=== PATIENT | female | born 1975 | race Caucasian/White ===

== ENCOUNTER → 2022-11-10 15:19 | Outpatient (BNVA) | payer OTHER, SELFPAY | PROVIDERS: PCP Family Medicine; Visit Provider Nurse Practitioner Family | DX: Z13.89 Encounter for screening for other disorder (principal) ==

== ENCOUNTER 2023-05-10 14:36 | Outpatient (AMB) | payer OTHER, SELFPAY ==
--- NOTE | 2023-05-10 14:39 | MHC.OFFVIS ---
Intake Vital Signs 05/10/23 14:40 Height 5 ft 4 in Weight 138 lb 8 oz BMI 23.8 Pulse 55 Pulse Source Pulse Oximeter Pulse Oximetry (%) 99 Oxygen Delivery Method Room Air Intake Visit Reasons: 6 mo f/u for Migraines-LVM Intake Note: Patient presents for 6 month follow up. Patient states pretty good I had last month mild aura but it went away quick. Allergies No Known Allergies Allergy (Verified 05/10/23 14:42) Medication List - Last Reconciled 05/10/23 by GENEVA Rubi fluoxetine 40 mg PO DAILY levothyroxine 100 mcg PO DAILY magnesium oxide 400 mg PO DAILY propranolol ER 60 mg PO BEDTIME rizatriptan 1 tab at onset of headache and may repeta in 2hrs as needed orally; HPI HPI Comments History of Present Illness Details 47-yr-old female presents for f/u visit. Pt denies any significant interval medical changes. Pt reports her migraines are well-controlled. In Sep, she had some breakthrough aura s/s, which just self-abated. Once she needed to take Rizatriptan, which was helpful PFSH Medical History Dysmenorrhea Anemia Surgical History H/O oral surgery Family History Father Diabetes Paternal Grandfather Diabetes Paternal Grandmother Diabetes Pancreatic cancer Breast cancer Paternal Uncle Diabetes Paternal Aunt Diabetes Breast cancer Maternal Grandmother Lung cancer Social History (Updated 11/10/22 @ 15:28 by Martine Mccoy CMA) Household Members: Spouse and Children Housing: House Alcohol intake: current Alcohol intake frequency: a few times a month Patient Tobacco Use Status: Never used Tobacco Review of Systems Const All systems reviewed & are unremarkable except as noted in HPI and below Physical Exam Vital Signs: Last Vital Signs Pulse 55 05/10/23 14:40 Pulse Ox 99 05/10/23 14:40 Oxygen Delivery Method Room Air 05/10/23 14:40 BMI result Body Mass Index 23.8 Const General: cooperative and no acute distress Orientation/consciousness: patient oriented x3 HEENT Head: Yes normocephalic Resp Effort & Inspection: normal respiratory effort and able to speak in complete sentences Neuro General: patient oriented x3, gait normal and CN's II-XI intact bilaterally Cognition (Neuro): normal cognition Motor exam (neuro): 5/5 motor strength present throughout Psych Appearance: grossly normal Mental Status: mental status grossly normal Speech and movement: Normal speech and movement present Affect: normal affect Attitude: cooperative Thought process: Normal thought process present Thought content: Normal thought content present Insight: Good insight present (Psych) Judgement: Good judgement present (Psych) Assessment & Plan Assessment & Plan (1) Migraine: Code(s): G43.909 - Migraine, unspecified, not intractable, without status migrainosus Plan Continue prorpanalol LA 60mg qd Resume magnesium 400mg qhs.. Rizatriptan 10mg as needed, MR dose in 2hrs, may adjunct w/ Tylenol or NSAID. f/u in 6 months or sooner prn. Medications: Refilled magnesium oxide 400 mg PO DAILY 30 caps 6RF rizatriptan 1 tab at onset of headache and may repeta in 2hrs as needed orally; 12 tabs 6RF Coding Level of Care Code Est Pt Level 3 (31617) Diagnoses Migraine G43.909
[2023-05-10 14:40] VITALS: PULSE 55; O2SAT 99; BMI 23.8
== END 2023-05-10 14:59 | disposition home or self-care (01) ==
PROVIDERS: Visit Provider Nurse Practitioner Family
DX: G43.909 Migraine, unspecified, not intractable, without status migrainosus (principal)
CPT/HCPCS: 99213

== ENCOUNTER → 2023-05-10 14:36 | Outpatient (BNVA) | payer OTHER, SELFPAY | PROVIDERS: Visit Provider Nurse Practitioner Family ==

== ENCOUNTER 2024-05-02 15:36 | Outpatient (AMB) | payer OTHER, SELFPAY ==
--- NOTE | 2024-05-02 15:41 | A.OFFVIS_ITS ---
Vital Signs 05/02/24 15:43 Height 5 ft 3 in Weight 136 lb BMI 24.1 BP 110/74 Blood Pressure Location Rt brachial Position Sitting Pulse 65 Pulse Source Pulse Oximeter Pulse Oximetry (%) 98 Oxygen Delivery Method Room Air Intake Visit Reasons: Follow Up Intake Note: Patient presents for follow up.patient migraines have had an uptick in the last few weeks Allergies No Known Allergies Allergy (Verified 05/02/24 15:47) Medication List - Last Reconciled 05/02/24 by GENEVA Rubi fluoxetine 40 mg PO DAILY levothyroxine 100 mcg PO DAILY magnesium oxide 400 mg PO DAILY propranolol 20 mg PO BID 30 days rizatriptan 1 tab at onset of headache and may repeta in 2hrs as needed orally; HPI Comments Details: 48-yr-old female presents for f/u visit. Pt denies any significant interval medical changes. Pt reports her migraines seem like they have increased, possibly in severity. Has ~ 4 migraine w/o aura attacks per month, 1 migraine w/ aura attack every 1-3 months. Rare regular headcahe, though had a couple last week- possibly had a mild cold. Rarely may look and see 2 bright white orbs- quick flash and they are gone. Different from her usual migraine aura. She is not sure if this was r/t her father being in the hospital most of the summer. But also the weather changes. She is taking the Rizatriptan, which is usually helpful but sometimes it takes longer to work. She stopped the propranolol approx 9-10 months ago d/t incidental bradycardia and variable HR, whcih was identified when she tried to donate platelets. Baseline migraine w/o aura characteristics: Neck and shoulders tightness which and works its way up to a throbbing occipital region pain a/w photophobia, phonophobia, nausea. Baseline migraine w/ aura characteristics: Starts as cannot see, then cannot see, and then has flashes of light, and then just goes away, f/b a headache that goes away pretty quickly. [facility] Medical History (Updated 05/02/24 @ 16:29 by GENEVA Rubi) Dysmenorrhea Anemia Surgical History H/O oral surgery Family History Father Diabetes Paternal Grandfather Diabetes Paternal Grandmother Diabetes Pancreatic cancer Breast cancer Paternal Uncle Diabetes Paternal Aunt Diabetes Breast cancer Maternal Grandmother Lung cancer Social History (Updated 11/10/22 @ 15:28 by Martine Mccoy [facility]) Household Members: Spouse and Children Housing: House Alcohol intake: current Alcohol intake frequency: a few times a month Patient Tobacco Use Status: Never used Tobacco Physical Exam Vital Signs: Last Vital Signs Pulse 65 05/02/24 15:43 BP 110/74 05/02/24 15:43 Pulse Ox 98 05/02/24 15:43 Oxygen Delivery Method Room Air 05/02/24 15:43 BMI result Body Mass Index 24.1 Const General: cooperative and no acute distress Orientation/consciousness: patient oriented x3 HEENT Head: Yes normocephalic Resp Effort & Inspection: normal respiratory effort and able to speak in complete sentences Neuro General: patient oriented x3, gait normal and CN's II-XI intact bilaterally Cognition (Neuro): normal cognition Motor exam (neuro): 5/5 motor strength present throughout Psych Appearance: grossly normal Mental Status: mental status grossly normal Speech and movement: Normal speech and movement present Affect: normal affect Attitude: cooperative Thought process: Normal thought process present Thought content: Normal thought content present Insight: Good insight present (Psych) Judgement: Good judgement present (Psych) Assessment & Plan Assessment & Plan (1) Migraine with aura: Comment: visual aura Code(s): G43.109 - Migraine with aura, not intractable, without status migrainosus Category: Medical (2) Migraine without aura: Code(s): G43.009 - Migraine without aura, not intractable, without status migrainosus Category: Medical Plan For migraine prevention tx: Trial Rimegepant ODT (Nurtec ODT) 75mg, 1 tab every other day. Max of 1 tabs (75mg) per 24 hours. Potential adverse effects, include but are not limited to fatigue, nausea, dry mouth, constipation. Continue magnesium 400mg qhs. Previous tx trials: Propranolol LA 60mg, Propranolol 10-20mg bid- caused bradycardia. Migraine tx contraindications: all anti-HTN tx's d/t hypotension and bradycardia and variable HR; amitriptyline/TCAs d/t bradycardia; topiramate- d/t impaired vision/family h/o glaucoma. Pt is wary to try CGRP MaBs d/t anxiety r/t long- half life. For acute migraine tx: Continue Rizatriptan 10mg as needed, MR dose in 2hrs, may adjunct w/ Tylenol or NSAID. f/u in 6 months or sooner prn. Medications: [facility] for migraine prevention 75 mg PO Q OTHER DAY 30 days 16 tabs 6RF migraine headache MDD 1 tab Refilled rizatriptan 1 tab at onset of headache and may repeta in 2hrs as needed or ally; 12 tabs 6RF magnesium oxide 400 mg PO DAILY 30 caps 6RF Coding Level of Care Code Est Pt Level 4 (44673) Diagnoses Migraine with aura G43.109 Migraine without aura G43.009
[2024-05-02 15:43] VITALS: BP 110/74; PULSE 65; O2SAT 98; BMI 24.1
== END 2024-05-02 16:17 | disposition home or self-care (01) ==
PROVIDERS: PCP Family Medicine; Visit Provider Nurse Practitioner Family
DX: G43.109 Migraine with aura, not intractable, without status migrainosus (principal); G43.009 Migraine without aura, not intractable, without status migrainosus
CPT/HCPCS: 99214

== ENCOUNTER 2025-04-08 15:16 | Outpatient (AMB) | payer OTHER, SELFPAY ==
--- NOTE | 2025-04-08 15:37 | MHC.OFFVIS ---
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 Pt denies any significant interval medical changes, other than starting a statin for familial HLD, which she feels is causing some new onset right knee pain. Pt reports her migraines seem like they have increased, possibly in severity. Has ~ 4 migraine w/o aura attacks per month, 1 milder migraine w/ aura attack every 1-3 months- last migraien w/ aura was in Feb. Yesterday, she had a migraine which she attributed to starting to run again after 1-2 months, and maybe pushed herself too hard. She is taking the Rizatriptan, which is usually helpful but sometimes it takes longer to work if she wakes up with a migraine. Generally tolerates the Rizatriptan- may make her throat feel like hs ehad been yelling for some time and her skin like she has had a sunburn- but not bothersome enough to stop the Rizatriptan. She received the [facility]te order for migraine prevention, but has not tried yet as she was starting on the statin. Baseline migraine w/o aura characteristics: Neck and shoulders tightness which and works its way up to a throbbing occipital region pain a/w photophobia, phonophobia, nausea. Baseline migraine w/ aura characteristics: Starts as cannot see, then cannot see, and then has flashes of light, and then just goes away, f/b a headache that goes away pretty quickly. [facility] Medical History (Updated 04/08/25 @ 16:28 by GENEVA Rubi) Dysmenorrhea Anemia Surgical History H/O oral surgery Family History Father Diabetes Paternal Grandfather Diabetes Paternal Grandmother Diabetes Pancreatic cancer Breast cancer Paternal Uncle Diabetes Paternal Aunt Diabetes Breast cancer Maternal Grandmother Lung cancer Social History Household Members: Spouse and Children Housing: House Alcohol intake: current Alcohol intake frequency: a few times a month Patient Tobacco Use Status: Never used Tobacco Physical Exam Vital Signs: Last Vital Signs Pulse 59 04/08/25 15:38 BP 112/68 04/08/25 15:38 Pulse Ox 98 04/08/25 15:38 Oxygen Delivery Method Room Air 04/08/25 15:38 BMI result Body Mass Index 25.3 Const General: cooperative and no acute distress Orientation/consciousness: patient oriented x3 HEENT Head: Yes normocephalic Resp Effort & Inspection: normal respiratory effort and able to speak in complete sentences Neuro General: patient oriented x3, gait normal and CN's II-XI intact bilaterally Cognition (Neuro): normal cognition Motor exam (neuro): 5/5 motor strength present throughout Psych Appearance: grossly normal Mental Status: mental status grossly normal Speech and movement: Normal speech and movement present Affect: normal affect Attitude: cooperative Thought process: Normal thought process present Thought content: Normal thought content present Insight: Good insight present (Psych) Judgement: Good judgement present (Psych) Assessment & Plan Assessment & Plan (1) Migraine with aura: Comment: visual aura Code(s): G43.109 - Migraine with aura, not intractable, without status migrainosus Category: Medical Qualifiers: Status migrainosus presence: without status migrainosus Intractability: not intractable Qualified Code(s): G43.109 - Migraine with aura, not intractable, without status migrainosus (2) Migraine without aura: Code(s): G43.009 - Migraine without aura, not intractable, without status migrainosus Category: Medical Qualifiers: Status migrainosus presence: without status migrainosus Intractability: not intractable Qualified Code(s): G43.009 - Migraine without aura, not intractable, without status migrainosus Plan For migraine prevention tx: Hold Rimegepant ODT (Nurtec ODT) 75mg order, patient was not meant to try at this time due to recently starting a statin. Continue magnesium 400mg qhs. Previous tx trials: Propranolol LA 60mg, Propranolol 10-20mg bid- caused bradycardia. Migraine tx contraindications: all anti-HTN tx's d/t hypotension and bradycardia and variable HR; amitriptyline/TCAs d/t bradycardia; topiramate- d/t impaired vision/family h/o glaucoma. Pt is wary to try CGRP MaBs d/t anxiety r/t long-half life. For acute migraine tx: Continue Rizatriptan 10mg as needed, MR dose in 2hrs, may adjunct w/ Tylenol or NSAID. May use her current supply of Nurtec to try to take Nurtec 75 mg ODT prn at onset of migraine, to see if this is more effective for better tolerated than rizatriptan. f/u in 12 months or sooner prn. Coding Level of Care Code Est Pt Level 4 (11453) Diagnoses Migraine with aura and without status migrainosus, not intractable G43.109 Status migrainosus presence: without status migrainosus Intractability: not intractable Migraine without aura and without status migrainosus, not intractable G43.009 Status migrainosus presence: without status migrainosus Intractability: not intractable
[2025-04-08 15:38] VITALS: BP 112/68; PULSE 59; O2SAT 98; BMI 25.3
--- OUTSIDE RECORDS SUMMARY | 2025-04-08 18:16 | XMS_ITS | Encounter Summary ---
Author Organization [facility] Address [address] [place] [address] Care Team Providers Care Weapons Electrical Engineering Officer Name Role Phone Jong Paula MD Primary Care Provider [phone] Encounter Details Date Type Department Care Team (Late st Contact Info) Description 03/26/2025 Scanned Document [address] [place] [id number] Provider, Generic Social History Tobacco Use Types Packs/Day Years Used Date Smoking Tobacco: Never Smokeless Tobacco: Never Alcohol Use Standard Drinks/Week Comments Not Currently 0 (1 standard drink = 0.6 oz pur e alcohol) Comments No Sex and Gender Information Value Date Recorded Sex Assigned at Not on file Legal Sex Female 10:55 AM EDT Gender Identity Not on file Sexual Orientation Not on file documented as of this encounter Plan of Treatment Not on file documented as of this encounter Visit Diagnoses Not on filedocumented in this encounter Care Teams Weapons Electrical Engineering Officer Relationship Specialty Start Date End Date Jong Paula MD [address] [place] [address] PCP - General Psychiatry, General 12/27/24 documented as of this encounter
--- OUTSIDE RECORDS SUMMARY | 2025-04-08 18:16 | XMS_ITS | Encounter Summary ---
Author Organization [facility] Address [address] [facility] [address] [place] [phone] Phone Care Team Providers Care Online Communications Manager Name Role Phone Jong Paula DO Primary Care Provider Reason for Visit * Reason Onset Date Comments Labs 04/07/2025 Encounter Details Date Type Department Care Team (Late st Contact Info) Description 04/07/2025 Telephone [facility] [address] [place] [phone] Virginia Pedro RN [address] [place] [address] Labs Social History Tobacco Use Types Packs/Day Years Used Date Smoking Tobacco: Never Smokeless Tobacco: Never Alcohol Use Standard Drinks/Week Comments Never 0 (1 standard drink = 0.6 oz pur e alcohol) Education Answer Date Recorded Are you interested in more education? Not on alexandra e 01/11/2023 Are you concerned about learning? Not on file 01/11/2023 No 01/11/2023 No 01/11/2023 Digital Access Answer Date Recorded No 01/11/2023 No 01/11/2023 Reliable internet access at home? Not on file 01/11/2023 Device with a working camera? Not on file Comments Unknown Sex and Gender Information Value Date Recorded Sex Assigned at Not on file Legal Sex Female 4:38 PM EDT Gender Identity Not on file Sexual Orientation Not on file documented as of this encounter Progress Notes * Virginia Pedro RN - 04/07/2025 4:30 PM EDT Pt left message looking for lab order for thyroid. documented in this encounter Plan of Treatment Upcoming Encounters Date Type Department Care Team (Late st Contact Info) Description 07/17/2025 10:20 AM EST Office Visit [facility] [address] [place] [phone] Lynn Barnett MD [address] [address] [email or web address] documented as of this encounter Visit Diagnoses Not on filedocumented in this encounter Care Teams Online Communications Manager Relationship Specialty Start Date End Date Jong Paula DO [address] [facility] [place] [address] PCP - General Family Medicine 01/04/23 documented as of this encounter Additional Source Comments The information contained in this document represents components of the legal health record. It is not the complete legal health record.[facility]
--- OUTSIDE RECORDS SUMMARY | 2025-04-08 18:16 | XMS_ITS | Clinical Summary ---
Author Organization [facility] Address [address] [place] [address] Care Team Providers Care Transfer And Pumphouse Operator Chief Name Role Phone Jong Paula MD Primary Care Provider [phone] Allergies No known active allergies Medications FLUoxetine (PROzac) 40 MG capsule Take by mouth. Active levothyroxine (SYNTHROID, LEVOTHROID) 100 MCG tablet TAKE 1 TAB ORALLY DAILY, OR DIRECTED Active Magnesium Oxide -Mg Supplement 400 MG Cap Take 1 tablet by mouth. 5 Active rizatriptan (MAXALT) 10 MG tablet TAKE 1 TABLET BY MOUTH AT ONSET OF HEADACHE AND MAY REPEAT IN 2 HOURS NEEDED Active rosuvastatin (CRESTOR) 10 MG tablet Take 0.5 mg by mouth. 5 Active hydrocortisone valerate (WEST-SHONA) 0.2 % ointment 5 Active levalbuterol (XOPENEX HFA) 45 mcg/puff inhalerIndicati ons:Bronchitis, Wheezes Inhale 1-2 puffs 3 times daily (every 8 hours) as needed for wheezing. 15 g 5 Active azithromycin (ZITHROMAX) 250 MG tabletIndicatio ns:Bronchitis,W heezes Take 2 tablets by mouth on day 1 followed by 1 tablet by mouth daily on days 2 through 5. 6 tablet 5 04/02/20 25 albuterol (PROVENTIL HFA; VENTOLIN HFA) 108 (90 Base) MCG/ACT inhalerIndicati ons:Bronchitis, Wheezes Inhale 2 puffs 3 times daily (every 8 hours) as needed for wheezing. 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 [place] [phone] Provider, Generic 03/26/2025 Travel from Last 3 Months Social History Tobacco Use Types Packs/Day Years Used Date Smoking Tobacco: Never Smokeless Tobacco: Never Alcohol Use Standard Drinks/Week Comments Not Currently 0 (1 standard drink = 0.6 oz pur e alcohol) Comments No Sex and Gender Information Value Date Recorded Sex Assigned at Not on file Legal Sex Female 10:55 AM EDT Gender Identity Not on file Sexual Orientation Not on file Last Filed Vital Signs Vital Sign Reading Time Taken Comments Blood Pressure 145/82 03/26/2025 11:46 AM EDT Pulse 81 03/26/2025 11:46 AM EDT Temperature 36.8 C (98.2 F) 03/26/2025 11:46 AM EDT Respiratory Rate 18 03/26/2025 11:46 AM EDT Oxygen Saturation 99% 03/26/2025 11:46 AM EDT Inhaled Oxygen Concentration - - Weight 64.4 kg (142 lb) 03/26/2025 11:46 AM EDT Height 162.6 cm (5' 4 ) 03/26/2025 11:46 AM EDT Body Mass Index 24.37 03/26/2025 11:46 AM EDT Plan of Treatment Health Maintenance Due Date Last Done Comments Hepatitis C Virus Screening 1973 HIV Screening 1986 DTaP/Tdap/Td Vaccines (1 - Tdap) 1992 Hepatitis B Vaccines (1 of 3 - 19+ 3-dose series) 1992 Pap Smear (Ages 21-65) 1994 Mammogram 2013 Colonoscopy 2018 Pneumococcal Vaccines 50+ (1 of 1 - PCV) 10/15/2023 Zoster (Shingles) Vaccine (1 of 2) 10/15/2023 COVID-19 Vaccine (3 - 2023-25 season) 03/30/202412/2020, 10/12/2020 Influenza Vaccine 02/27/2025 07/02/2022 Insurance [employer] HMO/POS Care Teams Transfer And Pumphouse Operator Chief Relationship Specialty Start Date End Date Jong Paula MD [address] [place] [address] PCP - General Psychiatry, General 12/27/24
--- OUTSIDE RECORDS SUMMARY | 2025-04-08 18:16 | XMS_ITS ---
Author Name [facility] Organization Unknown History of Medication Use Medication Directions Dispensed Refills Start Date End Date Stat us albuterol (PROVENTIL HFA; VENTOLIN HFA) 108 (90 Base) MCG/ACT inhaler Inhale 2 puffs 3 times daily (every 8 hours) as needed for wheezing. 03/26/2025 active azithromycin (ZITHROMAX) 250 MG tablet Take 2 tablets by mouth on day 1 followed by 1 tablet by mouth daily on days 2 through 5. 03/26/2025 active hydrocortisone valerate (WEST-SHONA) 0.2 % ointment 03/23/2025 active rosuvastatin (CRESTOR) 10 MG tablet Take 0.5 mg by mouth. 03/06/2025 active amoxicillin-clavulanat e (AUGMENTIN) 875-125 MG per tablet Take 1 tablet by mouth 2 (two) times a day. 12/27/2024 active Magnesium Oxide -Mg Supplement 400 MG Cap Take 1 tablet by mouth. 11/21/2024 active FLUoxetine (PROzac) 40 MG capsule Take by mouth. active levothyroxine (SYNTHROID, LEVOTHROID) 100 MCG tablet TAKE 1 TAB ORALLY DAILY, OR DIRECTED active rizatriptan (MAXALT) 10 MG tablet TAKE 1 TABLET BY MOUTH AT ONSET OF HEADACHE AND MAY REPEAT IN 2 HOURS NEEDED active Problems Problem Status Onset Date Problem Type Date of Resolution Source Migraine active 2023-07-25 ProblemAct [facility] Anxiety active 2023-07-25 ProblemAct [facility] Hyperlipidemia active 2023-07-[address] Wheezes active EncounterDiagnosisAct [facility] Palpitations active 2025-03-26 ProblemAct [facility] Bronchitis active EncounterDiagnosisAct [facility] SILVESTRE (generalized anxiety disorder) active 2025-03-26 ProblemAct [facility] Javan's thyroiditis active 2025-03-26 ProblemAct [facility] Encounters Encounter Type Encounter Reason Primary Diagnosis Location Date Ambulatory Bronchitis, not specified as acute or chronic Bronchitis, not specified as acute or chronic [facility] 03/26/2025 Ambulatory Acute serous otitis media, left ear Acute serous otitis media, left ear [facility] 12/27/2024 Care Team Organization Name Specialty Phone Email Start Date End Da edgar [facility] 12/27/2024 [facility] 12/27/2024 [employer] [facility]GR[facility] Primary Care 12/27/2024
--- OUTSIDE RECORDS SUMMARY | 2025-04-08 18:16 | XMS_ITS | Clinical Summary ---
Author Organization [facility] Address [address] [place] [address] Phone Care Team Providers Care Insulation Supervisor Name Role Phone Jong Paula DO Primary Care Provider Allergies No known active allergies Medications FLUoxetine (PROZAC) 40 MG capsule Take by mouth daily. Active magnesium oxide 400 mg magnesium Cap Take 1 capsule by mouth every morning. 3 Active propranoloL (INDERAL) 20 MG immediate release tablet Take 1 tablet by mouth 2 (two) times a day. 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 Reports good consistency taking rx appropriately. Will repeat labs today & adjust rx as appropriate. To call/message via portal if hasn't heard from me with results within 1-2 weeks. If levels normal, will repeat labs yearly, sooner prn symptoms of thyroid dysfunction or > 10-15# weight change, or as otherwise clinically indicated. Assessment & Plan (07/25/2023 2:55 PM EST): Has needed an increase in LT4 dose recently, without obvious reason. Weight has been stable. No obvious interfering medications. Has stopped periods within last 1-2 yrs, but that typically lowers dose requirements if anything. ? If some worsening of residual endogenous thyroid function? Reports good consistency taking rx appropriately. Will repeat labs in ~ 2 months & adjust rx as appropriate. To call/message via portal if hasn't heard from me with results within 1-2 weeks. If levels normal, will repeat labs in 6-12 months, sooner prn symptoms of thyroid dysfunction or > 10-15# weight change, or as otherwise clinically indicated. Will call for labs from ER visit & records from [facility]. Anxiety 07/25/2023 Hyperlipidemia 07/25/2023 Migraine 07/25/2023 Encounters Date Type Department Care Team Description 04/07/2025 Telephone [facility] [address] [place] [id number] Virginia Pedro RN Labs 02/12/2025 Refill [facility] [address] [place] [address] Lynn Barnett MD Medication Refill from Last 3 Months Social History Tobacco Use Types Packs/Day Years Used Date Smoking Tobacco: Never Smokeless Tobacco: Never Tobacco Cessation:Counseling Given: Not Answered Alcohol Use Standard Drinks/Week Comments Never 0 [...] Sign Reading Time Taken Comments Blood Pressure 114/68 07/25/2024 8:51 AM EST Pulse 66 07/25/2024 8:51 AM EST Temperature 36.5 C (97.7 F) 07/25/2023 11:46 AM EST Respiratory Rate - - Oxygen Saturation 98% 07/25/2024 8:51 AM EST Inhaled Oxygen Concentration - - Weight 63.2 kg (139 lb 6.4 oz) 07/25/2024 8:51 A M EST Height 162.6 cm (5' 4 ) 07/25/2024 8:51 AM EST Body Mass Index 23.93 07/25/2024 8:51 AM EST Plan of Treatment Upcoming Encounters Date Type Department Care Team (Late st Contact Info) Description 07/17/2025 10:20 AM EST Office Visit [facility] [address] [place] [id number] Lynn Barnett MD [address] [place] [id number] [email or web address] Due Date Last Done Comments Adult Td,Tdap Booster 1973 LIPID PANEL 1973 DEPRESSION SCREENING 1985 HEPATITIS C SCREENING 10/15/1991 HIV ONE-TIME SCREENING (18-6 5 YEARS) 10/15/1991 PAP SMEAR 1994 MAMMOGRAM 2013 COLOGUARD 2018 COLONOSCOPY 2018 COLORECTAL CANCER SCREENING 2018 FIT TEST 2018 FOBT 2018 SIGMOIDOSCOPY 2018 VIRTUAL COLONOSCOPY 2018 PNEUMOCOCCAL VACCINES (50+ years) (1 of 1 - PCV) 10/15/2023 ZOSTER VACCINES (1 of 2) 10/15/2023 INFLUENZA VACCINE (#1) 2025 COVID-19 VACCINE ( - 2023-2 5 season) 2025 TSH LEVEL 07/25/2025 07/25/2024, 07/06/2023, 05/14/2023 SMOKING STATUS SCREENING (On ce After 26 Yrs) Completed 07/25/2024 HEPATITIS A VACCINES Aged Out No long er eligible based on patient's age to complete this topic HIB VACCINES Aged Out No longer eligi ble based on patient's age to complete this topic MENINGOCOCCAL VACCINES (ACWY) Aged Out No longer eligible based on patient's age to complete this topic MENINGOCOCCAL VACCINES (B) Aged Out N o longer eligible based on patient's age to complete this topic Medical Devices Not on file Procedures Procedure Name Priority Date/Time Associated Diagnosis Comments TSH WITH REFLEX Routine 07/25/2024 9:32 AM EST 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 [employer] O POS EPO [employer] O POS EPO Care Teams Insulation Supervisor Relationship Specialty Start Date End Date Jong Paula DO [address] [facility] [place] [address] PCP - General Family Medicine 01/04/23 Additional Source Comments The information contained in this document represents components of the legal health record. It is not the complete legal health record.[facility]
--- OUTSIDE RECORDS SUMMARY | 2025-04-08 18:16 | XMS_ITS | Encounter Summary ---
Author Organization [facility] Address [address] [place] [id number] Care Team Providers Care Bias Cutter Name Role Phone Jong Paula MD Primary Care Provider [phone] Reason for Visit * Reason Comments Med Change Request Encounter Details Date Type Department Care Team (Late st Contact Info) Description 03/26/2025 Refill [facility] [address] [phone] Christophe Watson MD [address] [place] [address] Bronchitis; Wheezes Social History Tobacco Use Types Packs/Day Years [...] documented as of this encounter Visit Diagnoses Diagnosis Bronchitis Bronchitis, not specified as acute or chronic Wheezes Wheezing documented in this encounter Care Teams Bias Cutter Relationship Specialty Start Date End Date Jong Paula MD [address] [place] [address] PCP - General Psychiatry, General 12/27/24 documented as of this encounter
== END 2025-04-08 16:18 | disposition home or self-care (01) ==
LOC: HO.HSMS 15:17
PROVIDERS: PCP Family Medicine; Visit Provider Nurse Practitioner Family
DX: G43.109 Migraine with aura, not intractable, without status migrainosus (principal); G43.009 Migraine without aura, not intractable, without status migrainosus
CPT/HCPCS: 99214